=== PATIENT | male | born 1960 | race Caucasian/White ===

== ENCOUNTER → 2017-03-02 | Outpatient (CLI) | payer OTHER ==
[~2017-03-02] MED LIST: ALLEGRA180 MG PO; BUPROPION HCL150 MG; BUSPIRONE HCL10 MG PO; FISH OIL; KEFLEX500 MG PO; MOTRIN800 MG PO; NAPROXEN220 MG PO; RANITIDINE150 MG PO; SIMVASTATIN40 MG PO; SYNTHROID,LEV175 MCG PO; VICODIN 5/500 505 MG PO
== END | disposition home or self-care (01) ==
LOC: RAD 10:13
DX: M25.552 Pain in left hip (principal)

== ENCOUNTER → 2017-03-04 | Outpatient (CLI) | payer OTHER ==
[2017-03-04 07:09] LABS: HEMATOCRIT 44.2 % (42.0-52.0); MEAN CELL VOLUME 91.5 fl (80.0-94.0); MEAN CORPUSCULAR HGB 31.1 pg (27.0-31.0); MEAN CORPUSCULAR HGB CONC 33.9 g/dl (33.0-37.0); MEAN PLATELET VOLUME 10.6 fl (9.6-12.3); RED BLOOD COUNT 4.83 10*6/uL (4.50-5.90); RED CELL DISTRI WIDTH 13.4 % (0-14.5)
[2017-03-04 07:38] LABS: ALBUMIN 3.3 gm/dl (3.1-4.5); ALKALINE PHOSPHATASE 88 U/L (45-117); BUN 13 mg/dl (7-24); CHLORIDE 105 mmol/L (98-107); CHOLESTEROL 245 mg/dL (<200); CPK 209 U/L (39-308); CREATININE 1.05 mg/dL (0.70-1.30); FREE T4 0.97 ng/dl (0.76-1.46); HDL CHOLESTEROL 24 mg/dl (40-60); SGOT/AST 85 IU/L (3-35); SGPT/ALT 64 U/L (12-78); SODIUM 141 mmol/L (136-145); TOTAL PROTEIN 7.4 gm/dL (6.4-8.2); TRIGLYCERIDES 659 mg/dl (<150)
== END | disposition home or self-care (01) ==
LOC: LAB 06:49
PROVIDERS: Family Medicine
DX: E78.00 Pure hypercholesterolemia, unspecified (principal); E55.9 Vitamin D deficiency, unspecified; M54.9 Dorsalgia, unspecified

== ENCOUNTER 2017-05-04 15:40 | Emergency (ER) | payer OTHER ==
[~2017-05-04] VITALS: Ht 182.8 cm; Wt 115.7 kg
[2017-05-04] MEDS ORDERED: CYCLOBENZAPRINE5 M3 PO (16:46)
[2017-05-04] MEDS ORDERED: MEDROL DOSEPAK4 MG PO (16:47)
== END 2017-05-04 16:50 | disposition home or self-care (01) ==
LOC: ED 15:40
DX: S39.012A Strain of muscle, fascia and tendon of lower back, initial encounter (principal); F17.200 Nicotine dependence, unspecified, uncomplicated; Z79.899 Other long term (current) drug therapy; X50.1XXA Overexertion from prolonged static or awkward postures, initial encounter; Y93.89 Activity, other specified; Y92.69 Other specified industrial and construction area as the place of occurrence of the external cause; Y99.9 Unspecified external cause status

== ENCOUNTER → 2017-11-04 | Outpatient (CLI) | payer OTHER ==
[~2017-11-04] MED LIST changes: +CYCLOBENZAPRINE5 M3 PO; +MEDROL DOSEPAK4 MG PO
[2017-11-04 10:21] LABS: HEMATOCRIT 43.2 % (42.0-52.0); HEMOGLOBIN 14.3 g/dl (14.0-18.0); MEAN CELL VOLUME 92.5 fl (80.0-94.0); MEAN CORPUSCULAR HGB 30.6 pg (27.0-31.0); MEAN CORPUSCULAR HGB CONC 33.1 g/dl (33.0-37.0); MEAN PLATELET VOLUME 10.8 fl (9.6-12.3); RED BLOOD COUNT 4.67 10*6/uL (4.50-5.90)
[2017-11-04 10:46] LABS: ALBUMIN 3.3 gm/dl (3.1-4.5); ALKALINE PHOSPHATASE 85 U/L (45-117); BUN 9 mg/dl (7-24); CHLORIDE 104 mmol/L (98-107); CHOLESTEROL 247 mg/dL (<200); CREATININE 1.03 mg/dL (0.70-1.30); FREE T4 0.54 ng/dl (0.76-1.46); HDL CHOLESTEROL 26 mg/dl (40-60); SGOT/AST 106 IU/L (3-35); SGPT/ALT 69 U/L (12-78); SODIUM 141 mmol/L (136-145); TOTAL PROTEIN 7.3 gm/dL (6.4-8.2); TRIGLYCERIDES 497 mg/dl (<150)
== END | disposition home or self-care (01) ==
LOC: LAB 09:47
PROVIDERS: Family Medicine
DX: Z12.5 Encounter for screening for malignant neoplasm of prostate (principal); E78.00 Pure hypercholesterolemia, unspecified; E03.9 Hypothyroidism, unspecified; E55.9 Vitamin D deficiency, unspecified; I10 Essential (primary) hypertension

== ENCOUNTER 2018-05-25 17:14 | Inpatient (IN) | payer OTHER ==
[~2018-05-25] VITALS: Ht 182.9 cm; Wt 114.1 kg
--- NOTE | ~2018-05-25 | CON ---
[place], [place] REPORT OF CONSULTATION NAME: NIA ROMERO UNIT #: [id number] ROOM: 529 DOCTOR: NADER NGUYEN MD BIRTHDATE: [birth year] DOS: 05/26/2018 GASTROENTEROLOGY CONSULTATION HISTORY OF PRESENT ILLNESS: The patient is a 57-year-old gentleman who presented with chief complaint of abdominal pain, epigastric distress, nausea, vomiting, blood in the stool, diarrhea, multi complaints in GI system. His white blood cell at the time of admission was 9.8, H and H of 10 and 52, which dropped to 8.9 and 27, differential, microcytic, platelet was normal. His electrocardiogram, left ventricular hypertrophy, borderline prolonged QT intervals. His INR was 1.2. His comprehensive metabolic panel: Glucose of 187, creatinine 1.3. Electrolytes, balance. Liver function test, SGOT of 64, lipase of 59. PAST MEDICAL HISTORY: Associated with recently treated hypercholesterolemia, diabetes mellitus, and hypothyroidism. PAST SURGICAL HISTORY: Surgery of lower back. Right eye enucleation and implant. SOCIAL HISTORY: Nonsmoker. Social alcohol consumer. ALLERGIES: Allergies to no medication. FAMILY HISTORY: Noncontributory. REVIEW OF SYSTEMS: HEENT: Denies double vision or blurred vision. Right eye implant. RESPIRATORY: Denies acute shortness of breath. CARDIOVASCULAR: Denies acute chest pain. DIGESTIVE SYSTEM: Nausea, vomiting, and diarrhea. PHYSICAL EXAMINATION: VITAL SIGNS: Stable. HEENT: Benign right eye enucleated and implant. NECK: Supple. No thyromegaly. No cervical lymphadenopathy. CHEST: Symmetric anatomy. Equal expansion. No wheeze. No rhonchi. HEART: Normal sinus rhythm. No gallop. No murmur. ABDOMEN: Soft. No hepato-organomegaly. Bowel sounds present. No pulsatile mass. EXTREMITIES: No cyanosis. No pedal edema. NEUROLOGIC: Alert, oriented to time, place, person. IMPRESSION: Nausea, vomiting, status post diarrhea ____, known history of diabetes mellitus and hyperlipidemia. Abnormal liver function test, borderline, ruling out secondary to his statin therapy. Hypothyroidism. The patient on naproxen as well. PLAN AND DISCUSSION: We are going to proceed with endoscopic evaluation of upper and lower tract as limited as it can be. Anemia and drop in H and H has [place], [place] REPORT OF CONSULTATION NAME: NIA ROMERO UNIT #: [id number] ROOM: 529 DOCTOR: PATRICK HERNANDEZ,NADER BIRTHDATE: [birth year] been reviewed. Case discussed with the family at the bedside. Workup in progress. NADER NGUYEN MD CM:CONSTR:REPORT OF CONSULTATION 1002 05/27/18 0330 interface
--- NOTE | ~2018-05-25 | PR ---
[place], [place] PROGRESS NOTE NAME: NIA ROMERO UNIT #: [id number] ROOM: 529 DOCTOR: RADHA HERNANDEZ,CALLIE Enriquez BIRTHDATE: [birth year] DOS: 05/27/2018 SUBJECTIVE: The patient is feeling much better today. OBJECTIVE: VITAL SIGNS: Blood pressure 120/60, heart rate of 71 beats per minute, afebrile, breathing normally. IMPRESSION AND PLAN: 1. The patient with acute upper gastrointestinal bleed, status post banding of the esophageal recess. Hemoglobin has dropped to 8 from 8.9 yesterday, but appears to be stabilizing. The patient is on Sandostatin fusion and modified diet. 2. Liver cirrhosis and portal hypertension on CT scan of the abdomen. This was not known to the patient in the past. Slightly elevated protime of 1.2. 3. Mild protein calorie malnutrition with albumin level of 2.9. The patient is to work with dietary. 4. Type 2 diabetes mellitus with reasonably controlled blood sugars. Blood sugar 149. 5. Hypothyroidism, replaced with levothyroxine. CALLIE GARCIA MD CM:PNTRANS 50 53 CALLIE GARCIA MD 05/27/182053 interface
--- NOTE | ~2018-05-25 | WRIGHTHP ---
[place], [place] PATIENT HISTORY AND PHYSICAL EXAM [id number] UNIT #: [id number] ROOM: 529 DOCTOR: CALLIE GARCIA MD BIRTHDATE: [birth year] DOS: 05/26/2018 HISTORY OF PRESENT ILLNESS: The patient is a 57-year-old gentleman with a past medical history of: 1. Benign essential hypertension. 2. Obesity. 3. GERD. 4. Mixed hyperlipidemia. 5. History of fatty liver. The patient has history of mixed hyperlipidemia, type 2 diabetes mellitus, hypothyroidism, pollen allergies and major depression, recurrent. The patient presented to the Emergency Department after he had blood in his vomiting since Sunday. The patient was feeling unwell for a week or 2, but he had not noticed any black or red colored stools. No chest pain, no shortness of breath, but he was feeling weak and dizzy. REVIEW OF SYSTEMS: CARDIOVASCULAR SYSTEM: No chest pains or palpitations. GASTROINTESTINAL: The patient noticed blood in his vomiting. RESPIRATORY: No shortness of breath or wheezing. FAMILY HISTORY: Noncontributory. SOCIAL HISTORY: , lives at home. Denies smoking cigarettes, alcohol or any drug abuse. ALLERGIES: No known drug allergies. HOME MEDICATIONS: The patient is taking bupropion, cefdinir, cetirizine, levothyroxine, metformin, multivitamin, naproxen, ranitidine and simvastatin at home. PHYSICAL EXAMINATION: GENERAL: Alert and oriented x 3. Obese with a BMI of 34.1. GENERAL APPEARANCE: The patient is alert and oriented x 3, in no visible distress. HEENT AND NECK: Extraocular movements are intact. Sclerae are anicteric. Oral mucosa is moist and clean. No obvious facial weakness. Neck is supple without any lymphadenopathy. No thyromegaly. No JVD. No carotid arterial bruits. LUNGS: Clear to auscultation. No wheezing. No rhonchi. CARDIOVASCULAR SYSTEM: Heart rate is regular in rate and rhythm. S1 and S2 normally audible. No significant murmur or any other abnormal cardiac sounds. ABDOMEN: Soft, nontender. No obvious organomegaly. Bowel sounds are present. No obvious herniation. EXTREMITIES: Without significant cyanosis or edema. Warm to touch. CENTRAL NERVOUS SYSTEM: Alert and oriented x 3. Cranial nerves II-XII are intact. Speech is normal. The patient is able to move all extremities. Normal muscle strength. Deep tendon reflexes are equal on both sides. Plantars were [place], [place] PATIENT HISTORY AND PHYSICAL EXAM NAME: NIA ROMERO UNIT #: [id number] ROOM: 529 DOCTOR: CALLIE GARCIA MD BIRTHDATE: [birth year] downgoing. LABORATORY DATA: Hemoglobin of 8.9, dropped from 10.5 yesterday. Normal serum electrolytes, BUN elevated to 46 and albumin low at 2.9. IMPRESSIONS: 1. The patient with acute upper GI bleeding, esophageal recess and precipitous drop in hemoglobin and blood loss anemia, treated with esophagogastroduodenoscopy and ligation of esophageal varices by Dr. Hernandez and the patient has been put on octreotide and hemoglobin is being monitored. The patient is being monitored closely in the [facility] and his blood pressures and heart rates are well controlled. 2. Acute gastrointestinal bleed and anemia. Hemoglobin is to be monitored. 3. Type 2 diabetes mellitus. I will start him on metformin. Follow his blood sugars. 4. Hypothyroidism, treated with levothyroxine. 5. For esophageal varices, patient is being checked for hepatitis. The patient is not giving any previous history of alcohol abuse, but he was taking Naprosyn for quite some time now, although no stomach ulcerations were observed. CALLIE GARCIA MD CM:HISPHYS:PATIENT HISTORY AND PHYSICAL EXAMINATION 39 39 CALLIE GARCIA MD 05/26/182039 interface
--- NOTE | ~2018-05-25 | EKG ---
[place], [place] ELECTROCARDIOGRAM REPORT NAME: NIA ROMERO UNIT #: [id number] ROOM: 529 DOCTOR: JOSE MARTIN DRAFT REPORT BIRTHDATE: [birth year] 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
--- NOTE | ~2018-05-25 | O ---
[place], [place] OPERATIVE NOTE NAME: NIA ROMERO UNIT #: [id number] ROOM: 529 DOCTOR: NAEDR NGUYEN MD BIRTHDATE: [birth year] DOS: 05/26/2018 GASTROENDOSCOPIC REPORT INDICATIONS: This is 57 years old who has presented with a chief complaint of GI bleed, bloody stool, not feeling well. The patient is with a history of hypertension, hyperlipidemia, and hypothyroidism. He has been taking ibuprofen daily. The patient has history of alcohol consumption with abnormal liver function tests and no CT scan available. PROCEDURE: Today's procedure part of investigation is panendoscopy plus esophageal band ligation. PREMEDICATION: Propofol. SCOPE: Olympus forward-viewing gastroscope Q10 video. REPORT: After putting the patient in left lateral position and application of lubricant to the scope, the scope was introduced, thereafter under direct visualization advanced through the length of esophagus without difficulty. Esophageal varicosity at the 1 o'clock position extending from cervical esophagus to the esophagogastric junction. There was an area suspected to have been the culprit for the bleed. Below that, esophageal band ligation was performed with double ligation. Gastric pouch was entered. Stomach is full of blood, as much as possible suctioned out. Duodenal bulb, second and third part within normal limits, with presence of blood and debris. Visualization of detail of mucosa of the gastric pouch was dismal due to the degraded large volume of blood. The patient was extubated, tolerated the procedure well. IMPRESSION: Esophageal varicosity with suspected bleed status post double-band ligation at 1 o'clock position, gastric pouch full of blood. PLAN AND DISCUSSION: We are going to keep this gentleman on an ice cream milkshake and Sandostatin drip is going to be started. He is going to be started on a beta-sam and workup in progress. FINAL DIAGNOSES: 1. Upper gastrointestinal bleed. 2. Esophageal varicosity. Thank you very much indeed. [place], [place] OPERATIVE NOTE NAME: NIA ROMERO UNIT #: [id number] ROOM: 529 DOCTOR: NADER NGUYEN MD BIRTHDATE: [birth year] NADER NGUYEN MD CM:GRACIEORD:OPERATIVE NOTE 1114 1146 NADER NGUYEN MD 05/26/18 1146 interface
--- NOTE | ~2018-05-25 | PR ---
[place], [place] PROGRESS NOTE NAME: NIA ROMERO UNIT #: [id number] ROOM: 529 DOCTOR: CALLIE GARCIA MD BIRTHDATE: [birth year] DOS: 05/28/2018 SUBJECTIVE: The patient feels much better and is walking around today. Hemoglobin has improved to 8.4. OBJECTIVE: GENERAL APPEARANCE: The patient is alert and oriented x 3, in no visible distress. VITAL SIGNS: Blood pressure 108/54, heart rate 65 beats per minute, breathing 18 times per minute, afebrile. HEENT AND NECK: Exam within normal limits. CARDIOVASCULAR SYSTEM: Heart rate is regular in rate and rhythm. S1 and S2 normally audible. LUNGS: Clear to auscultation. ABDOMEN: Soft, nontender. No obvious organomegaly. Bowel sounds are present. EXTREMITIES: Without significant cyanosis or edema. IMPRESSION: 1. The patient with acute upper gastrointestinal bleed with stable hemoglobin now. Dr. Hernandez is following. Sandostatin drip is still on and the patient is on intravenous Protonix. 2. Type 2 diabetes mellitus with reasonably controlled blood sugars. 3. Hepatitis. Acute hepatitis profile was ordered, but apparently not performed. I am ordering it again to be performed in the morning. 4. Esophageal varices. Banded, Dr. Hernandez is following. 5. Advanced liver cirrhosis. To be worked up as an outpatient. Dr. Hernandez is following. 6. Mild protein-calorie malnutrition with an albumin of 2.9. 7. Hypothyroidism, replaced with levothyroxine. CALLIE GARCIA MD CM:PNTRANS 1906 5 CALLIE GARCIA MD 05/29/18 0147 interface
--- NOTE | ~2018-05-25 | DS ---
[place], [place] DISCHARGE SUMMARY NAME: NIA RMOERO UNIT #: [id number] ROOM: 529 DOCTOR: ACLLIE GARCIA MD BIRTHDATE: [birth year] DOS: 05/31/2018 DISCHARGE DIAGNOSES: 1. Acute upper gastrointestinal bleed and esophageal varices status post banding. 2. Advanced liver cirrhosis and portal hypertension. 3. Hepatitis A, B, C, acute hepatitis profile negative and INR at 1.2. 4. Type 2 diabetes mellitus. 5. Obesity. 6. Mild protein-calorie malnutrition, albumin of 2.9. 7. Hypothyroidism. 8. History of fatty liver. 9. Mixed hyperlipidemia. 10. Gastroesophageal reflux disease and esophagitis. 11. Benign essential hypertension. HOSPITAL COURSE: The patient presented to the Emergency Department at [facility] with history of vomiting fresh blood. The patient was also feeling unwell for about 2 weeks before he came to the hospital. He had not noticed any black, red or tarry stools. After admission, the patient was taken for an EGD by Dr. Hernandez and found to have esophageal varices, which were banded and hemoglobin monitored. The patient required blood transfusion with 2 units of blood and now his hemoglobin is 7.7 today and 8.6 day before and 7.9 the day day before with patient not having noticed any blood or tarry stools in the last couple of days. The patient requesting transfer to [facility] for further evaluation because this is a new diagnosis for him. Hepatitis profile performed was negative. Mild thrombocytopenia, platelet count of 126,000. History of gastroesophageal reflux disease and esophagitis, asymptomatic at present time. Obesity with a BMI of 34.1. The patient worked with dietary. Mild protein-calorie malnutrition with albumin level of 2.9. The patient to work with dietary. Hypothyroidism, replaced with levothyroxine. Benign essential hypertension. Blood pressures are staying normal. LABORATORY DATA: Hemoglobin of 7.7. The patient is status post blood transfusion. INR of 1.2. CT of the abdomen showing liver cirrhosis and signs of portal hypertension; hepatitis A, B, C negative on acute hepatitis profile. DISCHARGE MANAGEMENT: The patient is being transferred to [facility] for acute upper GI bleed and blood loss anemia. The patient on citalopram 20 mg a day, metformin 500 mg b.i.d., cetirizine 10 mg daily, levothyroxine 200 mcg daily, propranolol 10 mg b.i.d., Protonix IV 40 mg b.i.d., cefdinir 300 mg b.i.d. [place], [place] DISCHARGE SUMMARY NAME: NIA ROMERO UNIT #: [id number] ROOM: 529 DOCTOR: CALLIE GARCIA MD BIRTHDATE: [birth year] CALLIE GARCIA MD CM:STEFANI 1050 13 CALLIE GARCIA MD 05/31/18 1114 interface
--- NOTE | ~2018-05-25 | PR ---
[place], [place] PROGRESS NOTE NAME: NIA ROMERO UNIT #: [id number] ROOM: 529 DOCTOR: CALLIE GARCIA MD BIRTHDATE: [birth year] DOS: 05/30/2018 SUBJECTIVE: The patient continues to feel better. He has not noticed any blood in her stools. OBJECTIVE: VITAL SIGNS: Blood pressure 120/54, heart rate of 64 beats per minute, breathing 20 times per minute, temperature 98 degrees Fahrenheit. GENERAL APPEARANCE: The patient is alert and oriented x 3, in no visible distress. HEENT AND NECK: Exam within normal limits. CARDIOVASCULAR SYSTEM: Heart rate is regular in rate and rhythm. S1 and S2 normally audible. LUNGS: Clear to auscultation. ABDOMEN: Soft, nontender. No obvious organomegaly. Bowel sounds are present. EXTREMITIES: Without significant cyanosis or edema. IMPRESSION: 1. Hemoglobin stable at 8.6, was 7.9 yesterday. No more blood transfusions. 2. Blood loss anemia from upper gastrointestinal bleed. Hemoglobin stable. The patient still remains on IV Protonix, Sandostatin drip has been stopped. 3. Hypothyroidism, replaced with levothyroxine. 4. Mild protein-calorie malnutrition, albumin level of 2.9. 5. Advanced liver cirrhosis. The patient's INR at 1.2. 6. Acute hepatitis panel negative. CALLIE GARCIA MD CM:PNTRANS 1338 140 CALLIE GARCIA MD 05/30/18 1403 interface
--- NOTE | ~2018-05-25 | PR ---
[place], [place] PROGRESS NOTE NAME: NIA ROMERO UNIT #: [id number] ROOM: 529 DOCTOR: CALLIE GARCIA MD BIRTHDATE: [birth year] DOS: 05/29/2018 SUBJECTIVE: The patient continues to feel better. Hemoglobin today is 7.9. INR of 1.2. PHYSICAL EXAMINATION: GENERAL APPEARANCE: The patient is alert and oriented x 3, in no visible distress. Generalized weakness. HEENT AND NECK: Exam within normal limits. CARDIOVASCULAR SYSTEM: Heart rate is regular in rate and rhythm. S1 and S2 normally audible. LUNGS: Clear to auscultation. ABDOMEN: Soft, nontender. No obvious organomegaly. Bowel sounds are present. EXTREMITIES: Without significant cyanosis or edema. IMPRESSION: 1. The patient with acute upper GI bleed and blood loss anemia. Hemoglobin dropped to 7.9 and is being followed. The patient was treated with Sandostatin infusion and IV Protonix infusion. Dr. Hernandez is following after EGD. 2. Type 2 diabetes mellitus. Blood sugars are controlled. 3. Acute hepatitis profile ordered, results are still pending. 4. Esophageal varices, probable site of bleeding, Band-Aid by Dr. Hernandez. 5. Advanced liver cirrhosis in new finding. INR at 1.2. Hepatitis profile is pending. 6. Mild protein calorie malnutrition with albumin of 2.9. 7. Hypothyroidism, replaced with levothyroxine. CALLIE GARCIA MD CM:PNTRANS [id number] CALLIE GARCIA MD 05/29/18 7604 interface
--- NOTE | ~2018-05-25 | PR ---
[place], [place] PROGRESS NOTE NAME: NIA ROMERO UNIT #: [id number] ROOM: 529 DOCTOR: PATRICK HERNANDEZNADER BIRTHDATE: [birth year] DOS: 05/27/2018 HISTORY OF PRESENT ILLNESS: This is a 57-year-old patient who has presented with active GI bleed. Yesterday, he was found to have esophageal varicosity, band ligation of suspected bleeding varix was undertaken. This was a single location double band at 1 o'clock position. The patient therefore had a CT scan of the abdomen organized and it was found that he has cirrhotic liver and changes associated with portal hypertension. There is full thickening of all the small bowel, while finding can be similarly secondary to portal pressure. Electrolytes were normal. Calcium is low because his albumin is low. CBC, white blood cell is 5.6, H and H of 8 and 25 with platelets of 135. His INR 1.2. PAST MEDICAL HISTORY: Associated with hyperlipidemia, obesity, hypothyroidism, and diabetes mellitus. REVIEW OF SYSTEMS: HEENT: Denies double vision or blurred vision. RESPIRATORY: Denies shortness of breath. CARDIOVASCULAR: Denies acute chest pain. DIGESTIVE SYSTEM: GI bleed. PHYSICAL EXAMINATION: VITAL SIGNS: Stable. HEENT: Within normal limits, as reported in detail. Right eye is enucleated and prosthesis in place. HEENT benign otherwise. NECK: Supple. LUNGS: Vesicular. No wheeze, no rhonchi. HEART: Normal sinus rhythm. No gallop, no murmur. ABDOMEN: Obese, soft. No hepato-organomegaly. EXTREMITIES: No cyanosis, no pedal edema. NEUROLOGIC: Alert, oriented to time, place and person. IMPRESSION: 1. Cirrhotic liver with sequelae of that portal hypertension. 2. Anemia. 3. Gastrointestinal bleed. PLAN AND DISCUSSION: The patient is status post band ligation of esophageal varicosity for upper GI bleed. We are going to keep him on beta-sam as ordered and PPI therapy at the present time, liquid diet to prevent dismantling of band ligation the next 2-3 days as he tolerates and observation of H and H. His latest H and H has been 8 and 25. We will reassess it again tomorrow. [place], [place] PROGRESS NOTE NAME: NIA ROMERO UNIT #: [id number] ROOM: 529 DOCTOR: PATRICK HERNANDEZ,NADER BIRTHDATE: [birth year] NADER NGUYEN MD CM:PNROSSANA 180 34 NADER NGUYEN MD 05/27/181834 interface
[~2018-05-25 17:14] MED LIST changes: +CEFDINIR300 MG PO
[2018-05-25 17:15] VITALS: BP 123/70
[2018-05-25 17:37] LABS: BASO % 0.4 % (0.0-1.0); EOS # 0.1 10*3/uL (0.0-0.4); EOS % 1.3 % (1.0-4.0); HEMATOCRIT 32.2 % (42.0-52.0); HEMOGLOBIN 10.5 g/dl (14.0-18.0); LYMPH # 2.3 10*3/uL (1.3-4.4); LYMPH % 23.8 % (27.0-41.0); MEAN CELL VOLUME 94.7 fl (80.0-94.0); MEAN CORPUSCULAR HGB 30.9 pg (27.0-31.0); MEAN CORPUSCULAR HGB CONC 32.6 g/dl (33.0-37.0); MEAN PLATELET VOLUME 11.2 fl (9.6-12.3); MONO # 1.2 10*3/uL (0.1-1.0); MONO % 12.1 % (3.0-9.0); NEUT # 6.1 10*3/uL (2.3-7.9); PLATELET COUNT AUTOMATED 242 10*3/uL (130-400); RED CELL DISTRI WIDTH 14.4 % (0-14.5); WHITE BLOOD COUNT 9.8 10*3/uL (4.8-10.8)
[2018-05-25 17:47] LABS: ACT PARTIAL THROMBO TIME 25.1 SECONDS (20.8-31.5); INTERNATIONAL NORM RATIO 1.2 (2.0-3.5)
[2018-05-25 17:52] LABS: ALBUMIN 2.9 gm/dl (3.1-4.5); ALKALINE PHOSPHATASE 57 U/L (45-117); BUN 46 mg/dl (7-24); CHLORIDE 103 mmol/L (98-107); LIPASE 59 U/L (73-393); POTASSIUM 4.3 mmol/L (3.5-5.1); SGOT/AST 64 IU/L (3-35); SGPT/ALT 37 U/L (12-78); SODIUM 141 mmol/L (136-145); TOTAL PROTEIN 6.5 gm/dL (6.4-8.2)
[2018-05-25 18:14] VITALS: BP 129/58
[2018-05-25 18:45] VITALS: BP 134/65
[2018-05-25 19:10] VITALS: BP 142/62
[2018-05-26] VITALS (9 sets, daily range): BP systolic 115–170; BP diastolic 56–98
[2018-05-26 06:22] LABS: BASO % 0.4 % (0.0-1.0); EOS # 0.1 10*3/uL (0.0-0.4); HEMATOCRIT 27.3 % (42.0-52.0); HEMOGLOBIN 8.9 g/dl (14.0-18.0); LYMPH # 1.6 10*3/uL (1.3-4.4); LYMPH % 22.2 % (27.0-41.0); MEAN CELL VOLUME 95.8 fl (80.0-94.0); MEAN CORPUSCULAR HGB 31.2 pg (27.0-31.0); MEAN CORPUSCULAR HGB CONC 32.6 g/dl (33.0-37.0); MEAN PLATELET VOLUME 11.4 fl (9.6-12.3); MONO # 0.9 10*3/uL (0.1-1.0); NEUT # 4.5 10*3/uL (2.3-7.9); NEUT % 62.1 % (47.0-73.0); RED BLOOD COUNT 2.85 10*6/uL (4.50-5.90); RED CELL DISTRI WIDTH 14.6 % (0-14.5); WHITE BLOOD COUNT 7.2 10*3/uL (4.8-10.8)
[2018-05-26 06:24] LABS: PLATELET COUNT AUTOMATED 160 10*3/uL (130-400)
[2018-05-26] MEDS ORDERED: SIMVASTATIN40 MG PO (09:54)
[2018-05-26] MEDS ORDERED: CETIRIZINE10 MG PO (09:55)
[2018-05-26] MEDS ORDERED: CENTRUM COMPLE1 EACH PO (09:56)
[2018-05-26] MEDS ORDERED: GLUCOPHAGE500 M1 PO (09:56)
[2018-05-26] MEDS ORDERED: BUPROPION HCL150 M3 PO (09:57)
[2018-05-26] MEDS ORDERED: LEVOTHYROXINE200 MC2 PO (09:59)
[2018-05-26] MEDS ORDERED: COLON HEALTH PROBIOT PO (10:00)
[2018-05-27] VITALS: BP 116/62
[2018-05-27 06:15] LABS: BASO % 0.5 % (0.0-1.0); EOS # 0.3 10*3/uL (0.0-0.4); EOS % 5.9 % (1.0-4.0); HEMATOCRIT 25.7 % (42.0-52.0); LYMPH # 1.2 10*3/uL (1.3-4.4); LYMPH % 20.7 % (27.0-41.0); MEAN CELL VOLUME 97.7 fl (80.0-94.0); MEAN CORPUSCULAR HGB 30.4 pg (27.0-31.0); MEAN CORPUSCULAR HGB CONC 31.1 g/dl (33.0-37.0); MONO # 0.9 10*3/uL (0.1-1.0); MONO % 15.3 % (3.0-9.0); NEUT # 3.2 10*3/uL (2.3-7.9); NEUT % 57.2 % (47.0-73.0); PLATELET COUNT AUTOMATED 135 10*3/uL (130-400); RED BLOOD COUNT 2.63 10*6/uL (4.50-5.90); RED CELL DISTRI WIDTH 14.7 % (0-14.5); WHITE BLOOD COUNT 5.6 10*3/uL (4.8-10.8)
[2018-05-27 06:22] LABS: INTERNATIONAL NORM RATIO 1.2 (2.0-3.5)
[2018-05-27 06:34] LABS: CHLORIDE 110 mmol/L (98-107); CREATININE 1.26 mg/dL (0.70-1.30); SODIUM 144 mmol/L (136-145)
[2018-05-27 07:04] LABS: BUN 33 mg/dl (7-24)
[2018-05-27 08:00] VITALS: BP 122/54
[2018-05-27 12:00] VITALS: BP 117/52
[2018-05-27 16:00] VITALS: BP 119/59
[2018-05-28] VITALS: BP 122/43
[2018-05-28 06:41] LABS: BASO % 0.5 % (0.0-1.0); EOS # 0.4 10*3/uL (0.0-0.4); EOS % 9.8 % (1.0-4.0); HEMATOCRIT 24.3 % (42.0-52.0); HEMOGLOBIN 7.5 g/dl (14.0-18.0); LYMPH # 1.1 10*3/uL (1.3-4.4); LYMPH % 26.6 % (27.0-41.0); MEAN CELL VOLUME 98.4 fl (80.0-94.0); MEAN CORPUSCULAR HGB 30.4 pg (27.0-31.0); MEAN CORPUSCULAR HGB CONC 30.9 g/dl (33.0-37.0); MEAN PLATELET VOLUME 11.2 fl (9.6-12.3); MONO # 0.6 10*3/uL (0.1-1.0); MONO % 14.1 % (3.0-9.0); NEUT % 48.5 % (47.0-73.0); PLATELET COUNT AUTOMATED 126 10*3/uL (130-400); RED BLOOD COUNT 2.47 10*6/uL (4.50-5.90); RED CELL DISTRI WIDTH 14.8 % (0-14.5); WHITE BLOOD COUNT 4.2 10*3/uL (4.8-10.8)
[2018-05-28 07:12] LABS: INTERNATIONAL NORM RATIO 1.2 (2.0-3.5)
[2018-05-28 08:45] VITALS: BP 116/50
[2018-05-28 12:00] VITALS: BP 102/46
[2018-05-28 14:08] LABS: HEMATOCRIT 26.4 % (42.0-52.0); HEMOGLOBIN 8.4 g/dl (14.0-18.0)
[2018-05-28 16:00] VITALS: BP 108/54
[2018-05-28 20:00] VITALS: BP 115/48
[2018-05-29] VITALS: BP 108/56
[2018-05-29 06:57] LABS: INTERNATIONAL NORM RATIO 1.2 (2.0-3.5)
[2018-05-29 07:17] LABS: HEMATOCRIT 24.5 % (42.0-52.0); HEMOGLOBIN 7.9 g/dl (14.0-18.0)
[2018-05-29 08:00] VITALS: BP 132/59; BP 132/60
[2018-05-29 12:00] VITALS: BP 147/63
[2018-05-29 16:00] VITALS: BP 137/56
[2018-05-29 20:00] VITALS: BP 129/59
[2018-05-30] VITALS: BP 123/60
[2018-05-30 06:10] LABS: HEPATITIS B SURFACE AG Negative (Negative); HEPATITIS C VIRUS ANTIBODY <0.1 s/co (0.0-0.9)
[2018-05-30 06:35] LABS: HEMATOCRIT 27.2 % (42.0-52.0); HEMOGLOBIN 8.6 g/dl (14.0-18.0)
[2018-05-30 06:57] LABS: INTERNATIONAL NORM RATIO 1.1 (2.0-3.5)
[2018-05-30 08:00] VITALS: BP 130/67
[2018-05-30 12:00] VITALS: BP 120/54
[2018-05-30 16:00] VITALS: BP 141/66
[2018-05-30 20:00] VITALS: BP 152/70
[2018-05-31] VITALS: BP 127/71
[2018-05-31 06:18] LABS: HEMOGLOBIN 7.7 g/dl (14.0-18.0)
[2018-05-31 06:44] LABS: INTERNATIONAL NORM RATIO 1.2 (2.0-3.5)
[2018-05-31] MEDS ORDERED: PROTONIX40 M1 IV (11:05)
[2018-05-31 12:00] VITALS: BP 113/63
[2018-05-31 16:00] VITALS: BP 148/68
[2018-05-31 19:53] VITALS: BP 151/68
== END 2018-05-31 19:45 | disposition short-term general hospital (02) | DRG 423 ==
LOC: ED 17:14 → EDHOLD 18:34 → 5E 18:34
PROVIDERS: Internal Medicine; Internal Medicine Gastroenterology; Nurse Practitioner Family
PROC: 06L38CZ Occlusion of Esophageal Vein with Extraluminal Device, Via Natural or Artificial Opening Endoscopic (ICD-10-PCS; principal; 2018-05-26)
PROC: 0D968ZZ Drainage of Stomach, Via Natural or Artificial Opening Endoscopic (ICD-10-PCS; principal; 2018-05-26)
PROC: 30233N1 Transfusion of Nonautologous Red Blood Cells into Peripheral Vein, Percutaneous Approach (ICD-10-PCS; 2018-05-31)
DX: K70.30 Alcoholic cirrhosis of liver without ascites (principal); K29.71 Gastritis, unspecified, with bleeding; D62 Acute posthemorrhagic anemia; F33.9 Major depressive disorder, recurrent, unspecified; K76.6 Portal hypertension; E44.1 Mild protein-calorie malnutrition; I85.10 Secondary esophageal varices without bleeding; K22.70 Barrett's esophagus without dysplasia; E78.2 Mixed hyperlipidemia; E11.65 Type 2 diabetes mellitus with hyperglycemia; D69.6 Thrombocytopenia, unspecified; E03.9 Hypothyroidism, unspecified; I10 Essential (primary) hypertension; E66.9 Obesity, unspecified; K21.0 Gastro-esophageal reflux disease with esophagitis; Z68.34 Body mass index [BMI] 34.0-34.9, adult

== ENCOUNTER → 2018-06-06 | Outpatient (CLI) | payer OTHER ==
[~2018-06-06] MED LIST changes: +BUPROPION HCL150 M3 PO; +CENTRUM COMPLE1 EACH PO; +CETIRIZINE10 MG PO; +COLON HEALTH PROBIOT PO; +GLUCOPHAGE500 M1 PO; +LEVOTHYROXINE200 MC2 PO; +PROTONIX40 M1 IV
[2018-06-06 14:24] LABS: BASO % 0.6 % (0.0-1.0); EOS # 0.2 10*3/uL (0.0-0.4); EOS % 5.6 % (1.0-4.0); HEMATOCRIT 24.8 % (42.0-52.0); HEMOGLOBIN 7.5 g/dl (14.0-18.0); LYMPH % 29.4 % (27.0-41.0); MEAN CELL VOLUME 94.7 fl (80.0-94.0); MEAN CORPUSCULAR HGB 28.6 pg (27.0-31.0); MEAN CORPUSCULAR HGB CONC 30.2 g/dl (33.0-37.0); MEAN PLATELET VOLUME 11.6 fl (9.6-12.3); MONO # 0.4 10*3/uL (0.1-1.0); MONO % 13.6 % (3.0-9.0); NEUT # 1.6 10*3/uL (2.3-7.9); NEUT % 50.5 % (47.0-73.0); PLATELET COUNT AUTOMATED 169 10*3/uL (130-400); RED BLOOD COUNT 2.62 10*6/uL (4.50-5.90); RED CELL DISTRI WIDTH 14.7 % (0-14.5); WHITE BLOOD COUNT 3.2 10*3/uL (4.8-10.8)
== END | disposition home or self-care (01) ==
LOC: LAB 13:12
DX: D64.9 Anemia, unspecified (principal)

== ENCOUNTER → 2018-06-26 | Outpatient (CLI) | payer OTHER ==
[2018-06-26 14:05] LABS: BASO % 0.4 % (0.0-1.0); EOS # 0.2 10*3/uL (0.0-0.4); EOS % 7.4 % (1.0-4.0); HEMATOCRIT 29.4 % (42.0-52.0); HEMOGLOBIN 8.2 g/dl (14.0-18.0); LYMPH # 0.8 10*3/uL (1.3-4.4); LYMPH % 28.1 % (27.0-41.0); MEAN CELL VOLUME 89.6 fl (80.0-94.0); MEAN CORPUSCULAR HGB CONC 27.9 g/dl (33.0-37.0); MEAN PLATELET VOLUME 11.2 fl (9.6-12.3); MONO # 0.5 10*3/uL (0.1-1.0); MONO % 16.7 % (3.0-9.0); NEUT # 1.3 10*3/uL (2.3-7.9); PLATELET COUNT AUTOMATED 149 10*3/uL (130-400); RED BLOOD COUNT 3.28 10*6/uL (4.50-5.90); RED CELL DISTRI WIDTH 15.9 % (0-14.5); WHITE BLOOD COUNT 2.7 10*3/uL (4.8-10.8)
[2018-06-26 14:21] LABS: ALKALINE PHOSPHATASE 70 U/L (45-117); BILIRUBIN, DIRECT 0.3 mg/dL (0.0-0.2); BUN 11 mg/dl (7-24); CHLORIDE 110 mmol/L (98-107); CREATININE 1.04 mg/dL (0.70-1.30); GAMMA GLUTAMYL TRANSPEPTIDASE 35 U/L (15-85); SGOT/AST 55 IU/L (3-35); SGPT/ALT 27 U/L (12-78); SODIUM 144 mmol/L (136-145)
[2018-06-26 15:04] LABS: INTERNATIONAL NORM RATIO 1.2 (2.0-3.5)
== END | disposition home or self-care (01) ==
LOC: LAB 13:31
PROVIDERS: Internal Medicine Gastroenterology
DX: K74.60 Unspecified cirrhosis of liver (principal)

== ENCOUNTER → 2018-07-19 | Outpatient (CLI) | payer OTHER | END | disposition home or self-care (01) | LOC: RAD 12:35 | DX: Z13.820 Encounter for screening for osteoporosis (principal); M90.80 Osteopathy in diseases classified elsewhere, unspecified site; E55.9 Vitamin D deficiency, unspecified; K74.60 Unspecified cirrhosis of liver ==